=== PATIENT | female | born 1985 | race Caucasian/White ===

== ENCOUNTER 2017-07-01 07:09 | Inpatient (IN) | payer OTHER, MEDICAID, SELFPAY | END 2017-07-03 12:21 | disposition home or self-care (01) | DRG 768 | PROVIDERS: Admitting Provider Obstetrics & Gynecology; Family Provider Obstetrics & Gynecology; PCP Obstetrics & Gynecology; Visit Provider Obstetrics & Gynecology | DX: O69.81X0 Labor and delivery complicated by cord around neck, without compression, not applicable or unspecified (principal); O72.1 Other immediate postpartum hemorrhage; Z37.0 Single live birth; Z3A.39 39 weeks gestation of pregnancy | CPT/HCPCS: 36415; 59050; 85014; 85018; 85025; 86850; 86900; 86901; 86920; 99058; J1885; J2210; J2250; J2405; J2590; J2765; J3010 ==

== ENCOUNTER 2018-09-26 07:37 | Emergency (ER) | payer OTHER, MEDICAID, SELFPAY ==
[2018-09-26 07:40] VITALS: BP 152/103; PULSE 105; RESP 11; TEMP 36.9; O2SAT 100; BMI 23.5
--- NOTE | 2018-09-26 07:54 | ED.ALLEREA ---
HPI - Allergic Reaction General Chief complaint: Allergic Reaction Stated complaint: Tongue Swollen/hard to breath Time Seen by Provider: 09/26/18 07:41 Source: patient Mode of arrival: ambulatory Limitations: no limitations History of Present Illness HPI narrative: Patient comes to the emergency department complaining of a sense of tongue and throat swelling since 3:00 a.m. this morning. Patient states that she was feeling fine yesterday, and has not been ill with anything recently. She states her throat feels somewhat dry and slightly sore, but that is mainly a tight feeling. She denies any difficulty breathing, but states it is uncomfortable to swallow. Her has had strep throat several times, and has had it again recently, but patient states she has not felt ill. Patient denies any rash or itching. No facial swelling. She denies any exposure to new medications, foods, inhaled chemicals, or other products. She has never had any symptoms like this before. No other complaints at this time. Patient does not take any medications. Patient denies any history or symptoms of GERD. Related Data Previous Rx's Medication Instructions Recorded citalopram 20 mg tablet 20 mg PO DAILY #30 tab 07/08/18 alprazolam 0.25 mg tablet 0.25 mg PO QID #20 tab 07/13/18 clindamycin HCl 300 mg PO Q8H #21 cap 09/26/18 Allergies Allergy/AdvReac Type Severity Reaction Status Date / Time acyclovir [ACYCLOVIR] Allergy Intermediate n/v Verified 09/26/18 08:04 doxycycline [DOXYCYCLINE] Allergy Intermediate n/v Verified 09/26/18 08:04 Penicillins [PENICILLINS] Allergy Intermediate HIVES Verified 09/26/18 08:04 Review of Systems Constitutional Denies chills, Denies fever(s), Denies lethargy and Denies weakness Eyes Denies change in vision, Denies eye discharge, Denies irritation and Denies loss of vision ENT Ears, Nose, Mouth, and Throat: Reports change in voice, Denies neck pain and Reports sore throat Cardiovascular Denies chest pain, Denies irregular heart rhythm, Denies lightheadedness, Denies palpitations, Denies dyspnea, Denies dyspnea on exertion and Denies orthopnea Respiratory Denies cough, Denies dyspnea, Denies dyspnea on exertion and Denies wheezing Gastrointestinal Gastrointestinal: Denies abdominal pain, Denies change in bowel habits, Denies diarrhea, Denies nausea and Denies vomiting Genitourinary Denies hematuria, Denies flank pain, Denies urinary incontinence and Denies urinary urgency Musculoskeletal Denies neck pain Integumentary/Breasts Denies pruritus, Denies erythema, Denies rash and Denies wounds Neurologic Denies confusion, Denies loss of vision and Denies weakness Psychiatric Denies anxiety, Denies confusion, Denies depression, Denies homicidal ideation and Denies suicidal ideation Endocrine Denies palpitations Hematologic/Lymphatic Denies easy bruising Allergic/Immunologic Denies wheezing FOR[facility]LY [facility], [facility] Medical History Healthy adult (Acute) Surgical History No pertinent past surgical history (Acute) Social History Smoking Status: Never smoker Social History Smoking Status: Never smoker Exam Initial Vital Signs Initial Vital Signs: Vital Signs Temperature 98.4 F 09/26/18 07:40 Pulse Rate 105 H 09/26/18 07:40 Respiratory Rate 11 L 09/26/18 07:40 Blood Pressure 152/103 H 09/26/18 07:40 Pulse Oximetry 100 09/26/18 07:40 Const General: cooperative and well developed Nutritional Appearance: well nourished Orientation: alert, awake, oriented x3 and not confused Other: Patient's tongue does not appear grossly edematous. There is mild uvular edema appreciated. No facial swelling. [facility] Head: normocephalic and atraumatic Ears: external ears normal Nose: external nose normal and No nasal discharge Face and sinus: sinuses nontender, face symmetric, no sinus tenderness and No dry mucous membranes Mouth: oral mucosae normal and moist mucous membranes Teeth and gingiva: dentition normal Throat: tonsils normal and uvula midline Eyes General: appearance normal, both eyes and all related structures Eyelids: eyelids normal Conjunctivae: conjunctivae normal Sclera: sclerae normal Pupils: PERRL EOM: EOM intact bilaterally Neck Neck: normal visual inspection, trachea midline, No lymphadenopathy, No midline deformity and No JVD Lymphatic: No lymphedema Chest Chest: normal inspection of the chest Resp Effort & Inspection: normal respiratory effort, able to speak in complete sentences, no respiratory distress and no use of accessory muscles Auscultation: clear to auscultation bilaterally, no rales, no rhonchi and no wheezes Cardio Rate: regular rate Rhythm: regular rhythm Heart Sounds: no click, no gallops, no murmurs and no rubs Pulses: normal peripheral pulses GI Inspection: non-distended Palpation: soft, no hepatosplenomegaly, No guarding, No pulsatile mass and No tender Back/Spine/Pelvis Back: No CVA tenderness Cervical Spine: cervical ROM normal and No pain with cervical ROM Thoracic/Lumbar Spine: thoracic and lumbar spine normal to inspection Skin General: no rashes or lesions noted, No jaundice and No petechiae Neuro General: alert, oriented x3, gait normal and no focal motor deficits Speech: speech normal Extrem General: full ROM, no clubbing, cyanosis or edema, no pedal edema and no calf tenderness Psych Appearance: well kempt Mental Status: mental status grossly normal Attitude: cooperative Thought Content: normal and suicidality Judgment: judgment good Course Course Narrative: Patient was well appearing overall. She reported the sense of tongue swelling to be toward the back of her tongue, and this was not able to be well-visualized on exam. As such, immediate, objective evaluation of the potential swelling was not possible so patient was given Benadryl, Solu-Medrol, Pepcid, and IM epinephrine to treat any potential reaction which could be causing swelling in the patient's throat. Imaging was obtained to further evaluate the patency of the patient's throat and airway, and this was unremarkable. Patient did have a strep test done, and the rapid strep was positive. Patient was treated with clindamycin, she is allergic to penicillins. I feel the patient was stable for discharge home. She had not had any signs of deterioration in the emergency department, and there is no evidence of impending airway compromise on her imaging studies. Patient has been given instructions for home management of symptoms, as well as the usual indications for return. She has been discharged with a prescription for clindamycin. Orders Ordered: Discontinued Medications Clindamycin HCl (Cleocin) 300 mg PO NOW ONE Stop: 09/26/18 08:54 Last Admin: 09/26/18 09:01 Dose: 300 mg Diphenhydramine HCl (Benadryl) 50 mg IV NOW ONE Stop: 09/26/18 08:01 Last Admin: 09/26/18 08:05 Dose: 50 mg Epinephrine HCl (Adrenalin) 0.3 mg IM NOW ONE Stop: 09/26/18 08:01 Last Admin: 09/26/18 08:05 Dose: 0.3 mg Famotidine (Pepcid) 20 mg in 50 mls @ 200 mls/hr IV NOW ONE Stop: 09/26/18 08:16 Last Infusion: 09/26/18 08:22 Dose: 0 mls/hr Admin: 09/26/18 08:04 Dose: 200 mls/hr Methylprednisolone (Solu-Medrol 125 Mg Vial) 125 mg IV NOW ONE Stop: 09/26/18 08:01 Last Admin: 09/26/18 08:05 Dose: 125 mg MDM - Allergic Reaction Medical Records Attestation: I reviewed the patient's medical records. Lab Data Attestation: I reviewed the patient's lab results. Point of Care Testing Rapid Strep A Positive Imaging Data CT neck: Radiologist's impression: PROCEDURE: CT SOFT TISSUE NECK W CON INDICATIONS: throat swelling TECHNIQUE: After the administration of intravenous contrast, 3.0 mm axial sections acquired from the sella to the aortic arch. Additional oblique axial 3.0 mm sections acquired through the pharynx. 3 mm thick coronal and sagittal reformats were generated. For radiation dose reduction, the following was used: automated exposure control. COMPARISON: None. FINDINGS: Image quality: Excellent. Lymph nodes: Mildly prominent bilateral level II cervical lymph nodes. Vessels: Visualized vasculature appears patent. Neck spaces: The oropharynx, nasopharynx, and pharynx demonstrate no mucosal lesions. The vocal cords, false vocal cords, pyriform sinuses, epiglottis, vallecula, and tongue base all appear normal. Extramucosal spaces appear unremarkable. Glands: The parotid and submandibular glands appear normal. Thyroid gland is within normal limits. Miscellaneous: Visualized brain and orbits appear normal. Lung apices appear clear. Superficial soft tissues appear normal. Bones: No suspicious bony lesions. Visualized sinuses and mastoids appear unremarkable. IMPRESSION: Mildly prominent level II cervical lymph nodes, consistent with reactive lymph node enlargement. No abscess. Dictated by: Lindsey Cuevas M.D. on 09/26/2018 at 13:48 Approved by: Lindsey Cuevas M.D. on 09/26/2018 at 13:49 Discharge Plan Departure Patient Disposition: Home Clinical Impression: Strep pharyngitis Discharge Date/Time: 09/26/18 09:34 Interventions: ED Discharge Assessment Last Done: 09/26/18 09:34 Instructions: DI for Strep Throat Activity Restrictions/Additional Instructions: Your CT scan looks good. Your strep test is positive, even though your throat itself does not look infected. You have been started on antibiotics for the strep infection, and should continue these for the next week. If you get select her to the end of your antibiotic course, and you do not feel better, you should follow-up with your primary doctor. Prescriptions: New clindamycin HCl 300 mg capsule 300 mg PO Q8H Qty: 21 RF: 0 No Action citalopram 20 mg tablet 20 mg PO DAILY Qty: 30 RF: 3 alprazolam [Xanax] 0.25 mg tablet 0.25 mg PO QID Qty: 20 RF: 0
--- NOTE | 2018-09-26 08:02 | DI.CT.S_ITS ---
PROCEDURE: CT SOFT TISSUE NECK W CON INDICATIONS: throat swelling TECHNIQUE: After the administration of intravenous contrast, 3.0 mm axial sections acquired from the sella to the aortic arch. Additional oblique axial 3.0 mm sections acquired through the pharynx. 3 mm thick coronal and sagittal reformats were generated. For radiation dose reduction, the following was used: automated exposure control. COMPARISON: None. FINDINGS: Image quality: Excellent. Lymph nodes: Mildly prominent bilateral level II cervical lymph nodes. Vessels: Visualized vasculature appears patent. Neck spaces: The oropharynx, nasopharynx, and pharynx demonstrate no mucosal lesions. The vocal cords, false vocal cords, pyriform sinuses, epiglottis, vallecula, and tongue base all appear normal. Extramucosal spaces appear unremarkable. Glands: The parotid and submandibular glands appear normal. Thyroid gland is within normal limits. Miscellaneous: Visualized brain and orbits appear normal. Lung apices appear clear. Superficial soft tissues appear normal. Bones: No suspicious bony lesions. Visualized sinuses and mastoids appear unremarkable. IMPRESSION: Mildly prominent level II cervical lymph nodes, consistent with reactive lymph node enlargement. No abscess. Dictated by: Lindsey Cuevas M.D. on 09/26/2018 at 13:48 Approved by: Lindsey Cuevas M.D. on 09/26/2018 at 13:49
[2018-09-26] MEDS: FAMOTIDINE 20 MG/50 ML PIGGYBACK 200 MG IV (08:04)
[2018-09-26] MEDS: methylPREDNISolone 125 MG/2 ML VIAL IV (08:05)
[2018-09-26] MEDS: diphenhydrAMINE 50 MG/ML VIAL IV (08:05)
[2018-09-26] MEDS: EPINEPHrine 1 MG/ML AMPUL 0.3 MG IM (08:05)
[2018-09-26] MEDS: CLINDAMYCIN 150 MG CAPSULE 300 MG PO (09:01)
[2018-09-26 09:34] VITALS: BP 140/70; PULSE 100; RESP 15; O2SAT 100
== END 2018-09-26 09:34 | disposition home or self-care (01) ==
PROVIDERS: Emergency Provider Emergency Medicine; Family Provider Obstetrics & Gynecology
DX: J02.0 Streptococcal pharyngitis (principal)
CPT/HCPCS: 36591; 70491; 87880; 96365; 96372; 96375; 99283; 99284; J0171; J1200; J2930; Q9967

== ENCOUNTER → 2020-03-12 16:14 | Outpatient (CLI) | payer OTHER, SELFPAY ==
[2020-03-12 17:20] LABS: Alanine Aminotransferase 189 IU/L (<35); Albumin 4.4 g/dL (3.5-5.0); Albumin Globulin Ratio 1.5 (1.0-2.8); Alkaline Phosphatase 67 U/L (38-126); Aspartate Aminotransferase 125 IU/L (14-36); BUN Creatinine Ratio 13.1 (6-22); Bilirubin Total 0.5 mg/dL (0.2-1.3); Blood Urea Nitrogen 8 mg/dL (7-17); Calcium 9.2 mg/dL (8.4-10.2); Carbon Dioxide 32 mmol/L (22-32); Chloride 101 mmol/L (98-107); Estimated Glomerular Filt Rate > 60.0 mL/min (>60); Glucose 84 mg/dL (70-100); HEMOLYSIS < 15 (0-50); Potassium 3.5 mmol/L (3.4-5.1); Sodium 138 mmol/L (137-145); Total Protein 7.4 g/dL (6.3-8.2)
[2020-03-12 17:51] LABS: TSH w/ Reflex to FT4 1.57 uIU/mL (0.47-4.68)
== END ==
PROVIDERS: Family Provider Obstetrics & Gynecology; PCP Family Medicine; Referring Provider Family Medicine; Visit Provider Family Medicine
DX: I47.1 Supraventricular tachycardia (principal)
CPT/HCPCS: 36415; 80053; 84443

== ENCOUNTER → 2020-03-15 14:52 | Outpatient (CLI) | payer OTHER, SELFPAY ==
--- NOTE | 2020-04-09 11:02 | P.HOLT.S_ITS ---
Consulting Services Project Manager Report Referral & Results Date Patient Seen: 03/15/20 Requesting provider: Gene Rendon Indication: SVT Duration of monitoring (days): 9 Diary information: Patient had 19 triggered events and no diary entries Patient triggered events were associated with sinus rhythm and PACs Data: Minimum heart rate identified was 46 beats per minute at 06:31 on 03/16/2020 Maximum heart rate was 159 beats per minute at 08:34 on 03/23/2020 Less than 1% of identified beats or either ventricular supraventricular ectopic in origin No other significant dysrhythmias identified Impression: Essentially normal 8+ day monitoring specialist. Occasional PVCs and PACs. No SVT identified on this study Clinical correlation suggested
== END ==
PROVIDERS: Family Provider Obstetrics & Gynecology; PCP Family Medicine; Referring Provider Family Medicine; Visit Provider Family Medicine
DX: I47.1 Supraventricular tachycardia (principal)
CPT/HCPCS: 0296T; 0298T

== ENCOUNTER → 2023-08-12 07:48 | Outpatient (CLI) | payer BC, SELFPAY ==
--- NOTE | 2023-08-12 07:50 | DI.ECHO.S_ITS ---
[facility]---------+ [facility] : : [address] : : [place] : : [id number] : : Phone: [phone] Echocardiogram Report + + :Name: NINA MONTALVO Study Date: 08/12/2023 Height: 66 in : :Hospital ReadingLocation: Weight: 140 lb : : Gender: Female BSA: 1.7 m2 : :: 1985 Age: 38 yrs BP: 124/84 mmHg: :Reason For Study: CHEST PAIN : :Ordering Physician: AVI, : :DANNI Boggs Performed By: Rhoda Bueno : :Referring: DANNI KLEIN : + + Interpretation Summary The ejection fraction is estimated to be 55-60%. Diastolic parameters suggest probable normal left ventricular diastolic function and normal filling pressures. The right ventricle is normal in size and function. No significant valvular abnormalities. Pulmonary artery pressures cannot be estimated because of the lack of a measurable TR jet velocity but the IVC suggests a CVP of around 3 mmHg. Procedure: A two-dimensional transthoracic echocardiogram with color flow and Doppler was performed. The study quality was technically adequate. There is no prior echocardiogram noted for this patient. The patient was in sinus rhythm with heart rates between 75-82 bpm during the exam. Left Ventricle: The left ventricle is normal in size and wall thickness. The ejection fraction is estimated to be 55-60%. Diastolic parameters suggest probable normal left ventricular diastolic function and normal filling pressures. Right Ventricle: The right ventricle is normal in size and function. Atria: The left atrial size is normal. Right atrial size is normal. There is no Doppler evidence for an interatrial shunt. Mitral Valve: The mitral valve is normal in structure and function. There is trace mitral regurgitation. Aortic Valve: The aortic valve is trileaflet. The aortic valve opens well. There is no aortic valve stenosis. There is trace aortic regurgitation. Tricuspid Valve: The tricuspid valve is normal in structure and function. There is trace tricuspid regurgitation. Pulmonary artery pressures cannot be estimated because of the lack of a measurable TR jet velocity but the IVC suggests a CVP of around 3 mmHg. Pulmonic Valve: The pulmonic valve is not well visualized. There is no pulmonic valvular regurgitation. Great Vessels: The aortic root is normal size. The dimensions of the ascending aorta are normal. The IVC is of normal diameter and collapses greater than 50% with a sniff. This suggests a low right atrial pressure of 3 mm Hg. Pericardium/ Pleura There is no pericardial effusion. There is no pleural effusion. MMode/2D Measurements & Calculations LVIDd: 4.8 cm LVOT diam: 2.0 cm LVIDs: 3.2 cm Ao root diam: 3.2 cm FS: 32.8 % asc Aorta Diam: 2.6 cm IVSd: 0.70 cm Ao Arch Diam (Prox Trans): 2.4 cm LVPWd: 0.78 cm LV cox. diameter/BSA (cm/m^2): 2.8 LV sys. diameter/BSA (cm/m^2): 1.9 LA A2 area: 13.2 cm2 RA long axis: 4.4 cm LA A4 area: 14.4 cm2 RA area: 13.3 cm2 LA length (vol): 4.8 cm RA vol: 33.8 ml LA vol: 33.4 ml RA : 19.7 ml/m2 LA vol index: 19.4 ml/m2 IVC diam: 0.74 cm RVD1 (basal): 3.6 cm TAPSE: 1.9 cm Doppler Measurements & Calculations Ao V2 max: 131.0 cm/sec LVOT Max Antonio: 86.0 cm/sec Ao V2 mean: 107.2 cm/sec LV V1 max P.0 mmHg Ao max P.9 mmHg LV V1 VTI: 15.0 cm Ao mean P.8 mmHg SHEMAR(I,D): 1.8 cm2 Ao V2 VTI: 25.3 cm SHEMAR(V,D): 2.0 cm2 sev ratio: 0.59 SHEMAR indexed to BSA (cm^2/m^2): 1.1 MV E max antonio: 60.7 cm/sec TR max antonio: 168.2 cm/sec MV A max antonio: 57.8 cm/sec TR max P.3 mmHg MV E/A: 1.0 PA V2 max: 85.9 cm/sec Med Peak E' Antonio: 7.5 cm/sec PA V2 mean: 61.4 cm/sec E/E' med: 8.1 PA mean P.7 mmHg Lat Peak E' Antonio: 9.7 cm/sec PA pr(Accel): 29.3 mmHg E/E' lat: 6.3 E/e' average: 7.2 MV dec time: 0.16 sec SV(LVOT): 45.9 ml Reading Physician:05:16 PM
--- NOTE | 2023-08-12 07:50 | DI.NM.S_ITS ---
PROCEDURE: NM EXERCISE TREADMILL NON NUC COMPARISON: None. INDICATIONS: CHEST PAIN FINDINGS: The patient exercised for 11 minutes and 1 seconds, reaching 94% of maximum predicted heart rate. Hypertensive response to exercise (resting BP 118/88mmHg, max BP 210/80mmHg). Good exercise capacity (SUNDEEP 12.8METs, SUNDEEP -22%). No angina and diagnostic ST changes during exercise or recovery. No ectopy. IMPRESSION: Low risk, normal treadmill ECG only stress test with good exercise tolerance (SUNDEEP -22%). Hypertensive response to exercise (resting BP 118/88mmHg, max BP 210/80mmHg). Dictated by: Alex Sears MD on 08/13/2023 at 14:00 Approved by: Alex Sears MD on 08/13/2023 at 14:02
[2023-08-12 10:39] LABS: Add Manual Diff / Slide Review NO; Basophils Absolute Auto 0 /uL (0-100); Basophils Percent Auto 0.8 % (0-2); Eosinophils Absolute Auto 100 /uL (0-450); Eosinophils Percent Auto 2.5 % (2-4); Hematocrit 40.1 % (36-46); Hemoglobin 13.9 g/dL (12.0-16.0); Lymphocytes Absolute Auto 900 /uL (1100-4500); Lymphocytes Percent Auto 17.1 % (25-40); Mean Corpuscular HGB Conc 34.8 % (30-36); Mean Corpuscular Hemoglobin 32.9 PG (26-34); Mean Corpuscular Volume 94.7 fL (80-100); Monocytes Absolute Auto 600 /uL (0-900); Monocytes Percent Auto 11.8 % (3-14); Neutrophils Absolute Auto 3600 /uL (1500-7000); Neutrophils Percent Auto 67.8 % (50-75); Platelet Count 238 X10^3/uL (150-400); Red Blood Cell Count 4.23 X10^6/uL (4.0-5.2); Red Cell Distribution Width 12.6 % (11.6-14.8); White Blood Cell Count 5.3 X10^3/uL (4.5-11.0)
[2023-08-12 10:43] LABS: Hemoglobin A1C% w Est Avg Glu 5.4 % (4.0-6.0)
[2023-08-12 10:54] LABS: Alanine Aminotransferase 34 IU/L (<35); Albumin 4.8 g/dL (3.5-5.0); Albumin Globulin Ratio 1.5 (1.0-2.8); Alkaline Phosphatase 60 U/L (38-126); Aspartate Aminotransferase 39 IU/L (14-36); BUN Creatinine Ratio 13.3 (6-22); Bilirubin Total 0.4 mg/dL (0.2-1.3); Blood Urea Nitrogen 8 mg/dL (7-17); Calcium 9.9 mg/dL (8.4-10.2); Carbon Dioxide 31 mmol/L (22-32); Chloride 102 mmol/L (98-107); Cholesterol 210 mg/dL (140-199); Estimated Glomerular Filt Rate > 60 mL/min (>60); Globulin 3.1 g/dL (1.7-4.1); Glucose 100 mg/dL (70-100); HDL Cholesterol 39 mg/dL (40-60); HEMOLYSIS < 15 (0-50); LDL Cholesterol Calculated 138 mg/dL (<100); Magnesium 1.8 mg/dL (1.6-2.3); Potassium 4.6 mmol/L (3.4-5.1); Sodium 139 mmol/L (137-145); Total Protein 7.9 g/dL (6.3-8.2); Triglycerides 167 mg/dL (35-150)
== END ==
PROVIDERS: PCP Family Medicine; Referring Provider Internal Medicine Cardiovascular Disease; Visit Provider Internal Medicine Cardiovascular Disease
DX: I47.10 Supraventricular tachycardia, unspecified (principal); R00.2 Palpitations; Z13.1 Encounter for screening for diabetes mellitus; Z13.220 Encounter for screening for lipoid disorders
CPT/HCPCS: 36415; 80053; 80061; 83036; 83735; 84443; 85025; 93017; 93306